=== PATIENT | female | born 1980 | race Two or more races ===

== ENCOUNTER 2024-04-10 14:40 | Outpatient (REF) | payer MEDICAID, SELFPAY ==
--- OUTSIDE RECORDS SUMMARY | 2024-04-10 18:31 | XMS_ITS | Encounter Summary ---
Author Organization [employer] [facility] Address [address] [facility] [address] [place] [address] Care Team Providers Care Regrader Name Role Phone Unavailable Primary Care Provider Unavailabl e Reason for Visit * Reason Onset Date Comments Chart Prep 04/04/2024 Encounter Details Date Type Department Care Team (Late st Contact Info) Description 04/04/2024 Telephone [facility] [address] [place] [phone] Florecita Pal MA Chart Prep Social History [...] Description 06/12/2024 3:15 PM EDT Office Visit [facility] [address] [place] [address] Ирина Saenz NP [address] [place] [address] documented as of this encounter Visit Diagnoses Not on filedocumented in this encounter
--- OUTSIDE RECORDS SUMMARY | 2024-04-10 18:31 | XMS_ITS | Clinical Summary ---
Author Organization [employer] Address [address] [facility] 7[address] [place] [address] Care Team Providers Care Team Leader/Research Psychologist Name Role Phone Ирина Saenz NP Primary Care Provider [phone] Allergies No known active allergies Medications desogestrel-ethi [...] Description 04/10/2024 2:00 PM EST Office Visit [facility] [address] [place] [address] Ирина Saenz NP Anemia, unspecified type (Primary Dx); Menorrhagia with regular cycle; Exposure to sexually transmitted infection; Obesity (BMI 30.0-34.9) 04/10/2024 Travel 04/04/[address] [facility] [address] [place] [address] Florecita Pal MA Chart Prep 03/30/[address] [facility] [address] [place], [place] [phone] Ирина Saenz NP Pre-visit Planning (SDOH unable to reach, number disconnected) 01/31/[address] [facility] [address] [place], [place] [phone] Abhijeet Plasencia 01/28/2024 Patient Outreach [address] [phone] Abhijeet Plasencia RC Recovery Supports from Last [...] Description 06/12/2024 3:15 PM EDT Office Visit [facility] [address] [place] [address] Ирина Saenz NP [address] [place] [address] Health Maintenance Due Date Last Done Comments [...] type from Last 3 Months Results * TSH W/Reflex to FT4 (04/10/2024 3:11 PM EST) TSH reflex Free T4 2.45 0.32 - 4.0 uIU/mL [facility] Blood Venous blood specimen / Unknown 04/10/2024 3:11 PM EST 04/10/2024 4:01 PM EST us Ирина Saenz [employer] MAKER LAB BLOOD ORDERABLES Final Resul t [facility] [address] [place] [phone] [phone] * (ABNORMAL) CBC auto differential (04/10/2024 3:11 PM EST) White Blood Count 7.9 4.8 - 10.8 X10*3/uL [facility] Red Blood Count 3.86(L) 4.20 - 5.50 X10*6/uL [facility] Hemoglobin 7.3(L) 12.0 - 16.0 g/dl [facility] Hematocrit 25.2(L) 37.0 - 47.0 % [facility] Mean Corpuscular Volume 65.3(L) 80.0 - 98.0 fL [facility] Mean Corpuscular Hemoglobin 18.9(L) 27.0 - 33.0 pg [facility] Mean Corpuscular HGB Conc 29.0(L) 31.0 - 35.0 g/dl [facility] Red Cell Distribution Width 20.4(H) 11.0 - 16.0 % [facility] Platelet Count 369 160 - 400 X10*3/uL [facility] Mean Platelet Volume 10.3 9.4 - 12.3 fL [facility] Neutrophils Percent Auto 72.5 45 - 73 % [facility] Imm Gran Pct Auto 0.3 0.0 - 0.4 % [facility] Lymphocytes Percent Auto 19.3(L) 20 - 40 % [facility] Monocytes Percent Auto 7.7 2 - 11 % [facility] Eosinophils Percent Auto 0.1 0 - 4 % [facility] Basophils Percent Auto 0.1 0 - 2 % [facility] NRBC Pct Auto 0.0 0.0 - 0.2 /100WBC [facility] Neutrophils Absolute Auto 5.7 2.0 - 8.3 x10*3/uL [facility] Imm Gran Abs Auto 0.02 0.00 - 0.03 X10*3/uL [facility] Lymphocytes Absolute Auto 1.5 1.2 - 4.9 X10*3/uL [facility] Monocytes Absolute Auto 0.6 0.1 - 1.2 X10*3/uL [facility] Eosinophils Absolute Auto 0.0 0.0 - 0.4 X10*3/uL [facility] Basophils Absolute Auto 0.0 0.0 - 0.2 X10*3/uL [facility] NRBC Abs Auto 0.000 0.0 - 0.012 X10*3/uL [facility] Blood Venous blood specimen / Unknown 04/10/2024 3:11 PM EST 04/10/2024 4:01 PM EST us Ирина Saenz NP LAB BLOOD ORDERABLES Final Resul t [facility] [address] [place] [phone] * (ABNORMAL) Iron And Total Iron Binding Capacity (04/10/2024 3:11 PM EST) Iron 14(L) 30 - 160 mcg/dL [facility] Total Iron Binding Capacity 342 228 - 428 mcg/dL [facility] Percent Iron Saturation 4(L) 15 - 50 % [facility] Unsaturated Iron Binding 328 ug/dL [facility] Blood Venous blood specimen / Unknown 04/10/2024 3:11 PM EST 04/10/2024 4:01 PM EST Ирина Saenz NP LAB BLOOD ORDERABLES Final Resul t Performing Organization Address [facility] Co de Phone Number [facility] [address] [place] [phone] * Hemoglobin A1c (04/10/2024 3:11 PM EST) Hemoglobin A1c 5.2 <6.0 % [facility] Comment:Hemoglobin A1C Refer ence Range Adults: 4.8 - 6.0 % Non diabetic: < 6.0 % Goal: < 7.0 %Additional Action Suggested: > 8.0 %Note: Hemoglobin A1c results are invalid for patients with abnormal amounts of HbF. Blood transfusions may impact the HbA1c concentration in the patient sample. Estimated Average Glucose 103 mg/dL [facility] Comment:eAG = Estimated ave rage glucose which is %A1C expressed asaverage glucose, using the formula of the M2T-LjbntfgYpaoikm Glucose study (ADAG), Diabetes Care, Vol.31,#8,Sep. 2007 Blood Venous blood specimen / Unknown 04/10/2024 3:11 PM EST 04/10/2024 4:01 PM EST us Ирина Saenz NP LAB BLOOD ORDERABLES Final Resul t Performing Organization Address [facility] de Phone Number [facility] [address] [place] [phone] * (ABNORMAL) Comprehensive Metabolic Panel (04/10/2024 3:11 PM EST) Sodium 140 135 - 145 mmol/L [facility] Potassium 4.3 3.3 - 5.1 mmol/L [facility] Chloride 109(H) 96 - 108 mmol/L [facility] Carbon Dioxide 25 22 - 29 mmol/L [facility] Anion Gap 10(L) 12 - 20 [facility] Urea Nitrogen (BUN) 18(H) 9 - 16 mg/dL [facility] Creatinine, Serum 0.79 0.5 - 1.4 mg/dL [facility] Estimated Glomerular Filt Rate >60 [facility] Comment:Chronic Kidney Disea se: Estimated GFR < 60 mL/min/1.43b6Igywdx Kidney Disease: Estimated GFR < 15 mL/min/1.73m2 Glucose 85 60 - 115 mg/dL [facility] Calcium 8.7 8.4 - 10.2 mg/dL [facility] Bilirubin, Total 0.2 0.0 - 1.0 mg/dL [facility] Aspartate Amino Transferase 25 5 - 31 U/L [facility] Alanine Aminotransferase 20 0 - 31 U/L [facility] Total Protein 7.6 6.5 - 8.0 g/dL [facility] Albumin Level 3.6 3.5 - 5.0 g/dL [facility] Alkaline Phosphatase 51 39 - 117 U/L [facility] Blood Venous blood specimen / Unknown 04/10/2024 3:11 PM EST 04/10/2024 4:01 PM EST us Ирина Saenz NP LAB BLOOD ORDERABLES Final Resul t [facility] [address] [place] [address] [phone] from Last 3 Months Insurance [facility] STANDARD [facility] C3 Care Teams Team Leader/Research Psychologist Relationship Specialty Start Date End Date Ирина Saenz NP [address] [place] [address] PCP - General Family Medicine 04/10/24
--- OUTSIDE RECORDS SUMMARY | 2024-04-10 18:31 | XMS_ITS | Encounter Summary ---
Author Organization [employer] Address [address] [facility] [address] [place] [address] Care Team Providers Care Fiberglass Insulation Installer Name Role Phone Unavailable Primary Care Provider Unavailabl e Reason for Visit * Reason Comments Pre-visit Planning SDOH unable to reach , number disconnected Encounter Details Date Type Department Care Team (Late st Contact Info) Description 03/30/2024 Patient Outreach [facility] [address] [place], [place] [phone] Ирина Saenz NP [address] [place], [place] [phone] Pre-visit Planning (SDOH unable to reach, number [...] Description 06/12/2024 3:15 PM EDT Office Visit [facility] [address] [place] [address] Ирина Saenz NP [address] [place] [address] documented as of this encounter Visit Diagnoses Not on filedocumented in this encounter
--- OUTSIDE RECORDS SUMMARY | 2024-04-10 18:31 | XMS_ITS | Encounter Summary ---
Author Organization [employer] Address [address] [facility] [address] [place] [address] Care Team Providers Care Associate Product Integrity Engineer Name Role Phone MarycarmenИрина zarco MAL Primary Care Provider [phone] Encounter Details Date Type Department Care Team [...] Description 06/12/2024 3:15 PM EDT Office Visit [facility] [address] [place] [address] Ирина Saenz NP [address] [place] [address] documented as of this encounter Visit Diagnoses Not on filedocumented in this encounter Additional Health Concerns Assessment Noted Time PHQ-9 Depression Total Score: 9 04/10/19 3:13 PM EST documented as of this encounter Care Teams Associate Product Integrity Engineer Relationship Specialty Start Date End Date Ирина Saenz NP [address] [place] [address] PCP - General Family Medicine 04/10/24 documented as of this encounter
--- OUTSIDE RECORDS SUMMARY | 2024-04-10 18:31 | XMS_ITS | Encounter Summary ---
Author Organization [facility] Address [address] [place] [address] [address] [place] [address] Care Team Providers Care Metallography Teacher Name Role Phone Ирина Saenz ENGRAVER LETTERING Primary Care Provider [phone] Reason for Referral * Imaging (Routine) - Authorized Specialty Diagnoses / Procedures Referred By Contac t Referred To Contact Radiology Diagnoses Anemia, unspecified type Procedures Us Pelvis complete Ирина Saenz NP [address] [place] [address] Phone: tel: fax: [facility] [address] [place] [address], [address] [address] Phone: tel: fax: Referral ID Status Reason Start Date Expiration Date V isits Requested Visits Authorized [id number] Authorized 04/10/2024 04/10/2025 1 1 * Imaging (Routine) - Authorized Specialty Diagnoses / Procedures Referred By Contac t Referred To Contact Radiology Diagnoses Anemia, unspecified type Procedures US Pelvis Transvaginal Ирина Saenz NP [address] [place] [address] Phone: tel: fax: [facility] [address] [place] [address], [address] [address] Phone: tel: fax: Referral ID Status Reason Start Date Expiration Date V isits Requested Visits Authorized [id number] Authorized 04/10/2024 04/10/2025 1 1 Encounter Details Date Type Department Care Team (Late st Contact Info) Description 04/10/2024 2:00 PM EST Office Visit [facility] [address] [place] [address] Ирина Saenz NP [address] [place] [address] Anemia, unspecified type (Primary Dx); Menorrhagia with [...] this encounter Progress Notes * Ирина Saenz, ENGRAVER LETTERING - 04/10/2024 2:00 PM EST Subjective: Desiree Little is a 43 y.o. female who presents to the office for a new patient visit. Pt was cared for by rn spine into adult [facility] Current concerns: Fatigue, numbness tinling,started 7-8 months ago , blood work revealed severe anemia, was prescribed iron at that time, pt has not taken iron pills. Hx iron has caused constipation was referred to train operator, cannot recall imaging completed Heavy periods , [...] file. 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 Blood transfusions may impact the HbA1c concentration in the patient sample. Estimated Average Glucose 103 mg/dL [facility] Comment:eAG = Estimated ave rage glucose which is %A1C expressed asaverage glucose, using the formula of the T2P-AkohbfmColcecg Glucose study (ADAG), Diabetes Care, Vol.31,#8,2007 Blood Venous blood specimen / Unknown 04/10/2024 3:11 PM EST 04/10/2024 4:01 PM EST us Ирина Saenz NP LAB BLOOD ORDERABLES Final Resul t [facility] [address] [place] [phone] * (ABNORMAL) Comprehensive Metabolic Panel (04/10/2024 3:11 PM EST) Pathologist [facility] Sodium 140 135 - 145 mmol/L [facility] Potassium 4.3 3.3 - 5.1 mmol/L [facility] Chloride 109(H) 96 - 108 mmol/L [facility] Carbon Dioxide 25 22 - 29 mmol/L [facility] Anion Gap 10(L) 12 - 20 [facility] Urea Nitrogen (BUN) 18(H) 9 - 16 mg/dL [facility] Creatinine, Serum 0.79 0.5 - 1.4 mg/dL [facility] Estimated Glomerular Filt Rate >60 [facility] Comment:Chronic Kidney Disea se: Estimated GFR < 60 mL/min/1.16s9Hysmqu Kidney Disease: Estimated GFR < 15 mL/min/1.73m2 Glucose 85 60 - 115 mg/dL [facility] Calcium 8.7 8.4 - 10.2 mg/dL [facility] Bilirubin, Total 0.2 0.0 - 1.0 mg/dL [facility] Aspartate Amino Transferase 25 5 - 31 U/L [facility] Alanine Aminotransferase 20 0 - 31 U/L [facility] Total Protein 7.6 6.5 - 8.0 g/dL [facility] Albumin Level 3.6 3.5 - 5.0 g/dL [facility] Alkaline Phosphatase 51 39 - 117 U/L [facility] Blood Venous blood specimen / Unknown 04/10/2024 3:11 PM EST 04/10/2024 4:01 PM EST us Ирина Saenz ENGRAVER LETTERING LAB BLOOD ORDERABLES Final Resul t Performing Organization Address [facility] Co de Phone Number [facility] [address] [place] [phone] * TSH W/Reflex to FT4 (04/10/2024 3:11 PM EST) TSH reflex Free T4 2.45 0.32 - 4.0 uIU/mL [facility] Blood Venous blood specimen / Unknown 04/10/2024 3:11 PM EST 04/10/2024 4:01 PM EST us Ирина Saenz ENGRAVER LETTERING LAB BLOOD ORDERABLES Final Resul t Performing Organization Address [facility] Co de Phone Number [facility] [address] [place] [phone] * (ABNORMAL) Iron And Total Iron Binding Capacity (04/10/2024 3:11 PM EST) Iron 14(L) 30 - 160 mcg/dL [facility] Total Iron Binding Capacity 342 228 - 428 mcg/dL [facility] Percent Iron Saturation 4(L) 15 - 50 % [facility] Unsaturated Iron Binding 328 ug/dL [facility] Blood Venous blood specimen / Unknown 04/10/2024 3:11 PM EST 04/10/2024 4:01 PM EST us Ирина Saenz ENGRAVER LETTERING LAB BLOOD ORDERABLES Final Resul t [facility] [address] [place] [phone] [phone] * (ABNORMAL) CBC auto differential (04/10/2024 3:11 PM EST) White Blood Count 7.9 4.8 - 10.8 X10*3/uL [facility] Red Blood Count 3.86(L) 4.20 - 5.50 X10*6/uL [facility] Hemoglobin 7.3(L) 12.0 - 16.0 g/dl [facility] Hematocrit 25.2(L) 37.0 - 47.0 % [facility] Mean Corpuscular Volume 65.3(L) 80.0 - 98.0 fL [facility] Mean Corpuscular Hemoglobin 18.9(L) 27.0 - 33.0 pg [facility] Mean Corpuscular HGB Conc 29.0(L) 31.0 - 35.0 g/dl [facility] Red Cell Distribution Width 20.4(H) 11.0 - 16.0 % [facility] Platelet Count 369 160 - 400 X10*3/uL [facility] Mean Platelet Volume 10.3 9.4 - 12.3 fL [facility] Neutrophils Percent Auto 72.5 45 - 73 % [facility] Imm Gran Pct Auto 0.3 0.0 - 0.4 % [facility] Lymphocytes Percent Auto 19.3(L) 20 - 40 % [facility] Monocytes Percent Auto 7.7 2 - 11 % [facility] Eosinophils Percent Auto 0.1 0 - 4 % [facility] Basophils Percent Auto 0.1 0 - 2 % [facility] NRBC Pct Auto 0.0 0.0 - 0.2 /100WBC [facility] Neutrophils Absolute Auto 5.7 2.0 - 8.3 x10*3/uL [facility] Imm Gran Abs Auto 0.02 0.00 - 0.03 X10*3/uL [facility] Lymphocytes Absolute Auto 1.5 1.2 - 4.9 X10*3/uL [facility] Monocytes Absolute Auto 0.6 0.1 - 1.2 X10*3/uL [facility] Eosinophils Absolute Auto 0.0 0.0 - 0.4 X10*3/uL [facility] Basophils Absolute Auto 0.0 0.0 - 0.2 X10*3/uL [facility] NRBC Abs Auto 0.000 0.0 - 0.012 X10*3/uL [facility] Blood Venous blood specimen / Unknown 04/10/2024 3:11 PM EST 04/10/2024 4:01 PM EST us Ирина Saenz NP LAB BLOOD ORDERABLES Final Resul t [facility] [address] [place] [phone] [phone] documented in this encounter Visit Diagnoses Diagnosis Anemia, unspecified type- Primary Menorrhagia with regular cycle Exposure to sexually transmitted infection Obesity (BMI 30.0-34.9) documented in this encounter Additional Health Concerns Assessment Noted Time PHQ-9 Depression Total Score: 9 04/10/19 25 3:13 PM EST documented as of this encounter Care Teams Metallography Teacher Relationship Specialty Start Date End Date Ирина Saenz NP [address] [place] [phone] PCP - General Family Medicine 04/10/24 documented as of this encounter
[2024-04-11 14:28] LABS: CT PCR NOT DETECTED (Not Detect.); NG PCR NOT DETECTED (Not Detect.)
== END 2024-04-10 14:41 | disposition home or self-care (01) ==
LOC: HO.LNP 14:40
PROVIDERS: Visit Provider Nurse Practitioner Family
DX: Z20.2 Contact with and (suspected) exposure to infections with a predominantly sexual mode of transmission (principal)
CPT/HCPCS: 87491; 87591

== ENCOUNTER 2024-04-10 15:08 | Outpatient (REF) | payer MEDICAID, SELFPAY ==
[2024-04-10 16:06] LABS: MANUAL DIFF FLAG NO
[2024-04-10 16:20] LABS: Basophils Percent Auto 0.1 % (0-2); Eosinophils Percent Auto 0.1 % (0-4); Hematocrit 25.2 % (37.0-47.0); Hemoglobin 7.3 g/dl (12.0-16.0); Imm Gran Abs Auto 0.02 X10*3/uL (0.00-0.03); Imm Gran Pct Auto 0.3 % (0.0-0.4); Lymphocytes Absolute Auto 1.5 X10*3/uL (1.2-4.9); Lymphocytes Percent Auto 19.3 % (20-40); Mean Corpuscular Hemoglobin 18.9 pg (27.0-33.0); Mean Corpuscular Volume 65.3 fL (80.0-98.0); Mean Platelet Volume 10.3 fL (9.4-12.3); Monocytes Absolute Auto 0.6 X10*3/uL (0.1-1.2); Monocytes Percent Auto 7.7 % (2-11); Neutrophils Absolute Auto 5.7 x10*3/uL (2.0-8.3); Neutrophils Percent Auto 72.5 % (45-73); Platelet Count 369 X10*3/uL (160-400); Red Blood Count 3.86 X10*6/uL (4.20-5.50); Red Cell Distribution Width 20.4 % (11.0-16.0); White Blood Count 7.9 X10*3/uL (4.8-10.8)
[2024-04-10 16:25] LABS: Estimated Average Glucose 103 mg/dL; Hemoglobin A1c % 5.2 % (<6.0)
[2024-04-10 17:23] LABS: Alanine Aminotransferase 20 U/L (0-31); Albumin Level 3.6 g/dL (3.5-5.0); Anion Gap 10 (12-20); Aspartate Amino Transferase 25 U/L (5-31); Bilirubin Total 0.2 mg/dL (0.0-1.0); Blood Urea Nitrogen 18 mg/dL (9-16); Calcium 8.7 mg/dL (8.4-10.2); Carbon Dioxide 25 mmol/L (22-29); Chloride 109 mmol/L (96-108); Estimated Glomerular Filt Rate > 60; Glucose Random 85 mg/dL (60-115); Iron 14 mcg/dL (30-160); Percent Iron Saturation 4 % (15-50); Potassium 4.3 mmol/L (3.3-5.1); Sodium 140 mmol/L (135-145); Total Iron Binding Capacity 342 mcg/dL (228-428); Total Protein 7.6 g/dL (6.5-8.0); Unsaturated Iron Binding 328 ug/dL
[2024-04-10 17:27] LABS: TSH reflex Free T4 2.45 uIU/mL (0.32-4.0)
--- OUTSIDE RECORDS SUMMARY | 2024-04-10 17:28 | XMS_ITS | Encounter Summary ---
Author Organization [employer] [facility] Address [address] [facility] [address] [place] [address] Care Team Providers Care Software Test Automation Engineer Name Role Phone Unavailable Primary Care Provider Unavailabl e Reason for Visit * Reason Onset Date Comments Chart Prep 04/04/2024 Encounter Details Date Type Department Care Team (Late st Contact Info) Description 04/04/2024 Telephone [facility] [address] [place] [phone] Florecita Pal MA Chart Prep Social History Tobacco Use Types Packs/Day Years Used Date Smoking Tobacco: Never Assessed Comments Unknown Sex and Gender Information Value Date Recorded Sex Assigned at Female 04/07/2024 9:52 AM EST Legal Sex Female 8:30 AM EST Gender Identity Female 04/07/2024 9:52 AM EST Sexual Orientation Straight 04/07/2024 9: 52 AM EST documented as of this encounter Miscellaneous Notes * Telephone Encounter - Florecita Pal MA - 04/04/2024 10:22 AM EST Chart Prep Labs: not applicable Images: not applicable Vaccines due: Covid, Tdap, Hep B, Flu Referrals: none Screenings: mammogram , HIV, Hep C, Cervical cancer Overdue care gaps: Sbirt, SDOH, PHQ-9, Oral Health documented in this encounter Plan of Treatment Upcoming Encounters Date Type Department Care Team (Late st Contact Info) Description 06/12/2024 3:15 PM EDT Office Visit [facility] MED[facility]INE [address] [place] [phone] Ирина Saenz NP [address] [place] [address] documented as of this encounter Visit Diagnoses Not on filedocumented in this encounter
--- OUTSIDE RECORDS SUMMARY | 2024-04-10 17:28 | XMS_ITS | Encounter Summary ---
Author Organization [employer] Address [address] [facility] [address] [place] [address] Care Team Providers Care Talent Development Director Name Role Phone MarycarmenИрина zarco MAL Primary Care Provider [phone] Encounter Details Date Type Department Care Team (Latest Contact Info) Description 04/10/2024 Travel Social History Tobacco Use Types Packs/Day Years Used Date Smoking Tobacco: Never Smokeless Tobacco: Never Depression Answer Date Recorded Patient Health Questionnaire-9 Score 9 04/10/2024 Patient Health Questionnaire-9 Score 9 04/10/2024 Last PHQ-9: Questionnaire Data Not on file 0 04/10/2024 Housing Stability Answer Date Recorded What is your housing situation today? I have alix padgett 04/10/[address] you li ve. Do you have problems with any of the following? None of the above 04/10/2024 Food Insecurity Answer Date Recorded Within the past 12 months, y ou worried that your food would run out before you got money to buy more: Never True 04/10/2024 Within the past 12 months,th e food you bought just didn't last and you didn't have enough money to get more: Never True Transportation Answer Date Recorded In the past 12 months, has l ack of transportation kept you from medical appts, meetings, work or from getting things needed for daily living? No 04/10/2024 Utilities Answer Date Recorded In the past 12 months, has t he electric, gas, oil or water company threatened to shut off services in your home? No 04/10/2024 Depression Answer Date Recorded Patient Health Questionnaire-2 Score 2 04/10/2024 Internet Access Answer Date Recorded Internet Access Q1 Yes 04/10/2024 Internet Access Q2 Not on file 04/10/2024 Comments Unknown Sex and Gender Information Value Date Recorded Sex Assigned at Female 04/07/2024 9:52 AM EST Legal Sex Female 8:30 AM EST Gender Identity Female 04/07/2024 9:52 AM EST Sexual Orientation Straight 04/07/2024 9: 52 AM EST documented as of this encounter Plan of Treatment Upcoming Encounters Date Type Department Care Team (Late st Contact Info) Description 06/12/2024 3:15 PM EDT Office Visit [facility] [address] [place] [address] Ирина Saenz NP [address] [place] [address] documented as of this encounter Visit Diagnoses Not on filedocumented in this encounter Additional Health Concerns Assessment Noted Time PHQ-9 Depression Total Score: 9 04/10/19 3:13 PM EST documented as of this encounter Care Teams Talent Development Director Relationship Specialty Start Date End Date Ирина Saenz NP [address] [place] [address] PCP - General Family Medicine 04/10/24 documented as of this encounter
--- OUTSIDE RECORDS SUMMARY | 2024-04-10 17:28 | XMS_ITS | Clinical Summary ---
Author Organization [employer] Address [address] [facility] [address] [place] [address] Care Team Providers Care Director Stage Name Role Phone Ирина Saenz NP Primary Care Provider Allergies No known active allergies Medications desogestrel-ethi nyl estradiol (Apri) 0.15-30 MG-MCG tabletIndication s:Menorrhagia with regular cycle Take 1 tablet by mouth Once per day. 28 tablet 2 04/10/2024 Active Active Problems Problem Noted Date Diagnosed Date Anemia 04/10/2024 Assessment & Plan (04/10/2024 3:13 PM EST): Hx of significant anemia, pt denies gi symptoms, or hereditary anemia Does endorse menorraghia and hx of being prescribed iron Cbc iron panel ordered See menorraghia for further work up Menorrhagia with regular cycle 04/10/2024 Assessment & Plan (04/10/2024 3:14 PM EST): Concerning for fibroid uterus, Ultrasound ordered STI panel ordered Pt opts for ocps today as both contraception and potential for reducing symptoms Folllow up in 6-8 weeks Sooner prn Exposure to sexually transmitted infection 04/10 Obesity (BMI 30.0-34.9) 04/10/2024 Assessment & Plan (04/10/2024 3:13 PM EST): Metabolic labs as ordered below Class 1 obesity 04/04/2024 Resolved Problems Problem Noted Date Diagnosed Date Resolved Date Other specified anemias 04/10/20242 05/2024 Encounters Date Type Department Care Team Description 04/10/2024 2:00 PM EST Office Visit [facility] [address] [place] [address] Ирина Saenz NP Anemia, unspecified type (Primary Dx); Menorrhagia with regular cycle; Exposure to sexually transmitted infection; Obesity (BMI 30.0-34.9) 04/10/2024 Travel 04/04/2024 Telephone [facility] [address] [place] [address] Florecita Pal MA Chart Prep 03/30/2024 Patient Outreach [facility] [address] [place], [place] [phone] Ирина Saenz NP Pre-visit Planning (SDOH unable to reach, number disconnected) 01/31/2024 Patient Outreach [facility] [address] [place], [place] [phone] Abhijeet Plasencia 01/28/2024 Patient Outreach [address] [phone] Abhijeet Plasencia [facility] Recovery Supports from Last 3 Months Social History Tobacco Use Types Packs/Day Years Used Date Smoking Tobacco: Never Smokeless Tobacco: Never Tobacco Cessation:Counseling Given: Not Answered Depression Answer Date Recorded Patient Health Questionnaire-9 Score 9 04/10/2024 Patient Health Questionnaire-9 Score 9 04/10/2024 Last PHQ-9: Questionnaire Data Not on file 0 04/10/2024 Housing Stability Answer Date Recorded What is your housing situation today? I have alixkyree padgett 04/10/[address] you [...] Orientation Straight 04/07/2024 9: 52 AM EST Last Filed Vital Signs Vital Sign Reading Time Taken Comments Blood Pressure 112/64 04/10/2024 2:05 PM EST Pulse 99 04/10/2024 2:05 PM EST Temperature - - Respiratory Rate 18 04/10/2024 2:05 PM EST Oxygen Saturation 99% 04/10/2024 2:05 PM EST Inhaled Oxygen Concentration - - Weight 86.2 kg (190 lb) 04/10/2024 2:05 PM EST Height 157.5 cm (5' 2 ) 04/10/2024 2:05 PM EST Body Mass Index 34.75 04/10/2024 2:05 PM EST Plan of Treatment Upcoming Encounters Date Type Department Care Team (Late st Contact Info) Description 06/12/2024 3:15 PM EDT Office Visit [facility] [address] [place] [address] Ирина Saenz NP [address] [place] [address] Health Maintenance Due Date Last Done Comments HIV Screening 1981 Family Planning (PISQ) 1996 Hepatitis C Screening 09/24/1999 Hepatitis B Vaccines (1 of 3 - 19+ 3-dose series) 2000 Pap Smear 2002 Cervical Cancer Screening 09/24/2011 HPV/Cotest 09/24/2011 Mammogram 2021 DTaP/Tdap/Td Vaccines (2 - T d or Tdap) 11/03/2021 11/04/2011 COVID-19 Vaccine (3 - 2023-2 5 season) 2023 12/11/2020, 11/20/2020 Influenza Vaccine (#1) 2023 03/25/2011 Depression Monitoring (PHQ-9) 10/08/2024, 04/10/2024 Alcohol/Substance Use Screening 04/10/2025 04/10/2024 Depression Screening 04/10/2025 04/10/2024, 04/10/2024 SDOH Screening 04/10/2025 04/10/2024 Tobacco Screening 04/10/2025 04/10/2024 Zoster Vaccines (1 of 2) 09/24/2031 RSV Patients and Patients Aged 60 years or older (1 - 1-dose 75+ series) 2056 HIB Vaccines Aged Out No longer eligi ble based on patient's age to complete this topic HPV Vaccines Aged Out No longer eligi ble based on patient's age to complete this topic Hepatitis A Vaccines Aged Out No long er eligible based on patient's age to complete this topic IPV Vaccines Aged Out No longer eligi ble based on patient's age to complete this topic Meningococcal Vaccine Aged Out No jillian lior eligible based on patient's age to complete this topic Pneumococcal Vaccine: Pediatrics (0 to 5 Years) and At-Risk Patients (6 to 49) Years) Aged Out No longer eligible b ased on patient's age to complete this topic RSV under 20 months Aged Out No longe r eligible based on patient's age to complete this topic Rotavirus Vaccines Aged Out No longer eligible based on patient's age to complete this topic Procedures Procedure Name Priority Date/Time Associated Diagnosis Comments HEMOGLOBIN A1C Routine 04/10/2024 3:11 PM EST Obesity (BMI 30.0-34.9) COMPREHENSIVE METABOLIC PANEL Routine 04/10/2024 3:11 PM EST Obesity (BMI 30.0-34.9) TSH W/REFLEX TO FT4 Routine 04/10/2024 3 :11 PM EST Menorrhagia with regular cycle IRON AND TOTAL IRON BINDING CAPACITY Routine 04/10/2024 3:11 PM EST Anemia, unspecified type CBC WITH AUTO DIFFERENTIAL Routine 04/10/2024 3:11 PM EST Anemia, unspecified type from Last 3 Months Results * (ABNORMAL) CBC auto differential (04/10/2024 3:11 PM EST) White Blood Count 7.9 4.8 - 10.8 X10*3/uL [facility] Red Blood Count 3.86(L) 4.20 - 5.50 X10*6/uL [facility] Hemoglobin 7.3(L) 12.0 - 16.0 g/dl [facility] Hematocrit 25.2(L) 37.0 - 47.0 % [facility] Mean Corpuscular Volume 65.3(L) 80.0 - 98.0 fL [facility] Mean Corpuscular Hemoglobin 18.9(L) 27.0 - 33.0 pg [facility] Mean Corpuscular HGB Conc 29.0(L) 31.0 - 35.0 g/dl [facility] Red Cell Distribution Width 20.4(H) 11.0 - 16.0 % [facility] Platelet Count 369 160 - 400 X10*3/uL [facility] Mean Platelet Volume 10.3 9.4 - 12.3 fL [facility] Neutrophils Percent Auto 72.5 45 - 73 % [facility] Imm Gran Pct Auto 0.3 0.0 - 0.4 % [facility] Lymphocytes Percent Auto 19.3(L) 20 - 40 % [facility] Monocytes Percent Auto 7.7 2 - 11 % [facility] Eosinophils Percent Auto 0.1 0 - 4 % [facility] Basophils Percent Auto 0.1 0 - 2 % [facility] NRBC Pct Auto 0.0 0.0 - 0.2 /100WBC [facility] Neutrophils Absolute Auto 5.7 2.0 - 8.3 x10*3/uL [facility] Imm Gran Abs Auto 0.02 0.00 - 0.03 X10*3/uL [facility] Lymphocytes Absolute Auto 1.5 1.2 - 4.9 X10*3/uL [facility] Monocytes Absolute Auto 0.6 0.1 - 1.2 X10*3/uL [facility] Eosinophils Absolute Auto 0.0 0.0 - 0.4 X10*3/uL [facility] Basophils Absolute Auto 0.0 0.0 - 0.2 X10*3/uL [facility] NRBC Abs Auto 0.000 0.0 - 0.012 X10*3/uL [facility] Blood Venous blood specimen / Unknown 04/10/2024 3:11 PM EST 04/10/2024 4:01 PM EST us Ирина Saenz DELIVERY LEAD LAB BLOOD ORDERABLES Final Resul t Performing Organization Address [facility]/ZIP Co de Phone Number [facility] [address] [place] [address] [phone] * Hemoglobin A1c (04/10/2024 3:11 PM EST) Hemoglobin A1c 5.2 <6.0 % [facility] Comment:Hemoglobin A1C Refer ence Range Adults: 4.8 - 6.0 % Non diabetic: < 6.0 % Goal: < 7.0 %Additional Action Suggested: > 8.0 %Note: Hemoglobin A1c results are invalid for patients with abnormal amounts of HbF. Blood transfusions may impact the HbA1c concentration in the patient sample. Estimated Average Glucose 103 mg/dL [facility] Comment:eAG = Estimated ave rage glucose which is %A1C expressed asaverage glucose, using the formula of the [id number] Glucose study (ADAG), Diabetes Care, Vol.31,#8,Sep. 2007 Blood Venous blood specimen / Unknown 04/10/2024 3:11 PM EST 04/10/2024 4:01 PM EST us Ирина Saenz DELIVERY LEAD LAB BLOOD ORDERABLES Final Resul t Performing Organization Address City/[facility]/ZIP Co de Phone Number [facility] [address] [place] [address] [phone] from Last 3 Months Insurance [facility] STANDARD [facility] C3 Care Teams Director Stage Relationship Specialty Start Date End Date Ирина Saenz NP [address] [place] [address] PCP - General Family Medicine 04/10/24
--- OUTSIDE RECORDS SUMMARY | 2024-04-10 17:28 | XMS_ITS | Encounter Summary ---
Author Organization [employer] Address [address] [facility] [address] [place] [address] Care Team Providers Care Glazing Machine Operator Name Role Phone Unavailable Primary Care Provider Unavailabl e Reason for Visit * Reason Comments Pre-visit Planning SDOH unable to reach , number disconnected Encounter Details Date Type Department Care Team (Late st Contact Info) Description 03/30/2024 Patient Outreach [facility] [address] [place], [place] [phone] Ирина Saenz NP [address] [place], [place] [phone] Pre-visit Planning (SDOH unable to reach, number disconnected) Social History Tobacco Use Types Packs/Day Years Used Date Smoking Tobacco: Never Assessed Comments Unknown Sex and Gender Information Value Date Recorded Sex Assigned at Female 04/07/2024 9:52 AM EST Legal Sex Female 8:30 AM EST Gender Identity Female 04/07/2024 9:52 AM EST Sexual Orientation Straight 04/07/2024 9: 52 AM EST documented as of this encounter Progress Notes * Katalina Alvarez - 03/30/2024 12:52 PM EST CC Katalina Gorman placed outbound call to patient to complete pre-visit planning. No answer at this time. Patient name and were not confirmed. CC unable to leave a message due to number not in service documented in this encounter Plan of Treatment Upcoming Encounters Date Type Department Care Team (Late st Contact Info) Description 06/12/2024 3:15 PM EDT Office Visit [facility] MEDICINE [address] [place] [address] Ирина Saenz NP [address] [place] [address] documented as of this encounter Visit Diagnoses Not on filedocumented in this encounter
--- OUTSIDE RECORDS SUMMARY | 2024-04-10 17:28 | XMS_ITS | Encounter Summary ---
Author Organization [facility] Address [address] [place] [address] [address] [place] [address] Care Team Providers Care Vegetable Inspector Name Role Phone Ирина Saenz APPLIANCE INSTALLER Primary Care Provider [phone] Reason for Referral * Imaging (Routine) - Authorized Specialty Diagnoses / Procedures Referred By Contac t Referred To Contact Radiology Diagnoses Anemia, unspecified type Procedures Us Pelvis complete Ирина Saenz NP [address] [place] [address] Phone: tel: fax: [facility] [address] [place] [address], [address] [address] Phone: tel: fax: Referral ID Status Reason Start Date Expiration Date V isits Requested Visits Authorized [id number] Authorized 04/10/2024 04/10/2025 1 1 * Imaging (Routine) - Authorized Specialty Diagnoses / Procedures Referred By Contac t Referred To Contact Radiology Diagnoses Anemia, unspecified type Procedures US Pelvis Transvaginal Ирина Saenz NP [address] [place] [address] Phone: tel: fax: [facility] [address] [place] [address], [address] [address] Phone: tel: fax: Referral ID Status Reason Start Date Expiration Date V isits Requested Visits Authorized [id number] Authorized 04/10/2024 04/10/2025 1 1 Encounter Details Date Type Department Care Team (Late st Contact Info) Description 04/10/2024 2:00 PM EST Office Visit [facility] [address] [place] [address] Ирина Saenz NP [address] [place] [address] Anemia, unspecified type (Primary Dx); Menorrhagia with regular cycle; Exposure to sexually transmitted infection; Obesity (BMI 30.0-34.9) Social History Tobacco Use Types Packs/Day Years [...] AM EST documented as of this encounter Last Filed Vital Signs Vital Sign Reading [...] Mass Index 34.75 04/10/2024 2:05 PM EST documented in this encounter Progress Notes * Ирина Saenz, APPLIANCE INSTALLER - 04/10/2024 2:00 PM EST Subjective: Desiree Little is a 43 y.o. female who presents to the office for a new patient visit. Pt was cared for by town manager into adult garcia Current concerns: Fatigue, numbness tinling,started 7-8 months ago , blood work revealed severe anemia, was prescribed iron at that time, pt has not taken iron pills. Hx iron has caused constipation was referred to drawbench operator helper, cannot recall imaging completed Heavy periods , no gi symptoms, Pt does not want to be , would like to start contraceptives today, non smoker, no hx of estrogen mediated breast ca, no clotting disorder, no hx of migraine with aura, Patient Active Problem List Diagnosis Class 1 obesity Anemia Menorrhagia with regular cycle Exposure to sexually transmitted infection Obesity (BMI 30.0-34.9) No past surgical history on file. No family history on file. 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 No Known Allergies Review of Systems Constitutional: Positive for fatigue. Negative for activity change. Respiratory: Negative for apnea and chest tightness. Cardiovascular: Negative for chest pain. Gastrointestinal: Negative for abdominal distention. Endocrine: Negative for cold intolerance, heat intolerance, polydipsia, polyphagia and polyuria. Genitourinary: Positive for menstrual problem. Negative for difficulty urinating, dyspareunia, pelvic pain and vaginal discharge. Musculoskeletal: Negative for arthralgias. Psychiatric/Behavioral: Negative for agitation. Vitals: 04/10/24 1405 BP: 112/64 BP Location: Left arm Patient Position: Sitting BP Cuff Size: Large adult Pulse: 99 Resp: 18 SpO2: 99% Weight: 190 lb (86.2 kg) Height: 5' 2 (1.575 m) Physical Exam Vitals reviewed. Constitutional: Appearance: She is obese. HENT: Head: Normocephalic and atraumatic. Nose: Nose normal. Eyes: Conjunctiva/sclera: Conjunctivae normal. Cardiovascular: Rate and Rhythm: Normal rate and regular rhythm. Heart sounds: Normal heart sounds. Pulmonary: Effort: Pulmonary effort is normal. Breath sounds: Normal breath sounds. Abdominal: Palpations: Abdomen is soft. Tenderness: There is no abdominal tenderness. Musculoskeletal: Cervical back: Normal range of motion and neck supple. Neurological: General: No focal deficit present. Mental Status: She is alert. Problem List Items Addressed This Visit Anemia - Primary Current Assessment & Plan Hx of significant anemia, pt denies gi symptoms, or hereditary anemia Does endorse menorraghia and hx of being prescribed iron Cbc iron panel ordered See menorraghia for further work up Relevant Orders CBC auto differential Iron And Total Iron Binding Capacity US Pelvis Transvaginal Us Pelvis complete Menorrhagia with regular cycle Current Assessment & Plan Concerning for fibroid uterus, Ultrasound ordered STI panel ordered Pt opts for ocps today as both contraception and potential for reducing symptoms Folllow up in 6-8 weeks Sooner prn Relevant Medications desogestrel-ethinyl estradiol (Apri) 0.15-30 MG-MCG tablet Other Relevant Orders TSH W/Reflex to FT4 Exposure to sexually transmitted infection Relevant Orders HIV-1/2 Antigen and Antibodies, Fourth Generation, with Reflexes RPR (Monitor) with Reflex to Titer Hepatitis C Antibody with Reflex to HCV, RNA, Quantitative, Real-Time PCR Chlamydia/N. Gonorrhoeae RNA, TMA, Urogenitial Obesity (BMI 30.0-34.9) Current Assessment & Plan Metabolic labs as ordered below Relevant Orders Comprehensive Metabolic Panel Hemoglobin A1c Routine Screening and Health Maintenance Sti panel ordered Current Outpatient Medications Medication Sig Dispense Refill desogestrel-ethinyl estradiol (Apri) 0.15-30 MG-MCG tablet Take 1 tablet by mouth Once per day. 28 tablet 2 No current facility-administered medications for this visit. Immunization History Administered Date(s) Administered Pfizer Covid-19 Vaccine 12+ 11/20/2020, 12/11/2020 documented in this encounter Miscellaneous Notes * Assessment & Plan Note - Ирина Saenz NP - 04/10/2024 3:14 PM ESTAssociated Problem(s): Menorrhagia with regular cycle Concerning for fibroid uterus, Ultrasound ordered STI panel ordered Pt opts for ocps today as both contraception and potential for reducing symptoms Folllow up in 6-8 weeks Sooner prn * Assessment & Plan Note - Ирина Saenz NP - 04/10/2024 3:13 PM ESTAssociated Problem(s): Obesity (BMI 30.0-34.9) Metabolic labs as ordered below * Assessment & Plan Note - Ирина Saenz NP - 04/10/2024 3:12 PM ESTAssociated Problem(s): Anemia Hx of significant anemia, pt denies gi symptoms, or hereditary anemia Does endorse menorraghia and hx of being prescribed iron Cbc iron panel ordered See menorraghia for further work up documented in this encounter Plan of Treatment Upcoming Encounters Date Type Department Care Team (Late st Contact Info) Description 06/12/2024 3:15 PM EDT Office Visit [facility] [address] [place] [address] Ирина Saenz NP [address] [place] [address] Pending Results Name Type Priority Associated Diagnoses Date /Time Iron And Total Iron Binding Capacity Lab Routine Anemia, unspecified type 04/10/2024 3:11 PM EST TSH W/Reflex to FT4 Lab Routine Menorrhagia with regular cycle 04/10/2024 3:11 PM EST Comprehensive Metabolic Panel Lab Routine Obesity (BMI 30.0-34.9) 04/10/2024 3:11 PM EST Scheduled Orders Name Type Priority Associated Diagnoses Orde r Schedule US Pelvis Transvaginal Imaging Routine Anemia, unspecified type Expected: 04/10/2024, Expires: 04/10/2025 Us Pelvis complete Imaging Routine Anemia, unspecified type Expected: 04/10/2024, Expires: 04/10/2025 HIV-1/2 Antigen and Antibodies, Fourth Generation, with Reflexes Lab Routine Exposure to sexually transmitted infection Expected: 04/10/2024 (Approximate), Expires: 04/10/2025 RPR (Monitor) with Reflex to??Titer Lab Routine Exposure to sexually transmitted infection Expected: 04/10/2024, Expires: 04/10/2025 Hepatitis C Antibody with Reflex to HCV, RNA, Quantitative, Real-Time PCR Lab Routine Exposure to sexually transmitted infection Expected: 04/10/2024, Expires: 04/10/2025 Chlamydia/N. Gonorrhoeae RNA, TMA, Urogenitial Microbiology Routine Exposure to sexually transmitted infection Ordered: 04/10/2024 documented as of this encounter Procedures Procedure Name Priority Date/Time Associated Diagnosis Comments TSH W/REFLEX TO FT4 Routine 04/10/2024 3 :11 PM EST Menorrhagia with regular cycle CBC WITH AUTO DIFFERENTIAL Routine 04/10/2024 3:11 PM EST Anemia, unspecified type IRON AND TOTAL IRON BINDING CAPACITY Routine 04/10/2024 3:11 PM EST Anemia, unspecified type HEMOGLOBIN A1C Routine 04/10/2024 3:11 PM EST Obesity (BMI 30.0-34.9) COMPREHENSIVE METABOLIC PANEL Routine 04/10/2024 3:11 PM EST Obesity (BMI 30.0-34.9) documented in this encounter Results * Hemoglobin A1c (04/10/2024 3:11 PM EST) Hemoglobin A1c 5.2 <6.0 % [facility] Comment:Hemoglobin A1C Refer ence Range Adults: 4.8 - 6.0 % Non diabetic: < 6.0 % Goal: < 7.0 %Additional Action Suggested: > 8.0 %Note: Hemoglobin A1c results are invalid for patients with abnormal amounts of HbF. Blood transfusions may impact the HbA1c concentration in the patient sample. Estimated Average Glucose 103 mg/dL [facility] Comment:eAG = Estimated ave rage glucose which is %A1C expressed asaverage glucose, using the formula of the C8R-WpzzoqrQxxradz Glucose study (ADAG), Diabetes Care, Vol.31,#8,Sep. 2007 Blood Venous blood specimen / Unknown 04/10/2024 3:11 PM EST 04/10/2024 4:01 PM EST us Ирина Saenz NP LAB BLOOD ORDERABLES Final Resul t [facility] [address] [place] [address] [phone] * (ABNORMAL) CBC auto differential (04/10/2024 3:11 PM EST) White Blood Count 7.9 4.8 - 10.8 X10*3/uL [facility] Red Blood Count 3.86(L) 4.20 - 5.50 X10*6/uL [facility] Hemoglobin 7.3(L) 12.0 - 16.0 g/dl [facility] Hematocrit 25.2(L) 37.0 - 47.0 % [facility] Mean Corpuscular Volume 65.3(L) 80.0 - 98.0 fL [facility] Mean Corpuscular Hemoglobin 18.9(L) 27.0 - 33.0 pg [facility] Mean Corpuscular HGB Conc 29.0(L) 31.0 - 35.0 g/dl [facility] Red Cell Distribution Width 20.4(H) 11.0 - 16.0 % [facility] Platelet Count 369 160 - 400 X10*3/uL [facility] Mean Platelet Volume 10.3 9.4 - 12.3 fL [facility] Neutrophils Percent Auto 72.5 45 - 73 % [facility] Imm Gran Pct Auto 0.3 0.0 - 0.4 % [facility] Lymphocytes Percent Auto 19.3(L) 20 - 40 % [facility] Monocytes Percent Auto 7.7 2 - 11 % [facility] Eosinophils Percent Auto 0.1 0 - 4 % [facility] Basophils Percent Auto 0.1 0 - 2 % [facility] NRBC Pct Auto 0.0 0.0 - 0.2 /100WBC [facility] Neutrophils Absolute Auto 5.7 2.0 - 8.3 x10*3/uL [facility] Imm Gran Abs Auto 0.02 0.00 - 0.03 X10*3/uL [facility] Lymphocytes Absolute Auto 1.5 1.2 - 4.9 X10*3/uL [facility] Monocytes Absolute Auto 0.6 0.1 - 1.2 X10*3/uL [facility] Eosinophils Absolute Auto 0.0 0.0 - 0.4 X10*3/uL [facility] Basophils Absolute Auto 0.0 0.0 - 0.2 X10*3/uL [facility] NRBC Abs Auto 0.000 0.0 - 0.012 X10*3/uL [facility] Blood Venous blood specimen / Unknown 04/10/2024 3:11 PM EST 04/10/2024 4:01 PM EST us Ирина Saenz NP LAB BLOOD ORDERABLES Final Resul t [facility] [address] [place] [address] [phone] documented in this encounter Visit Diagnoses Diagnosis Anemia, unspecified type- Primary Menorrhagia with regular cycle Exposure to sexually transmitted infection Obesity (BMI 30.0-34.9) documented in this encounter Additional Health Concerns Assessment Noted Time PHQ-9 Depression Total Score: 9 04/10/19 25 3:13 PM EST documented as of this encounter Care Teams Vegetable Inspector Relationship Specialty Start Date End Date Ирина Saenz NP [address] [place] [address] PCP - General Family Medicine 04/10/24 documented as of this encounter
[2024-04-10 17:58] LABS: Alkaline Phosphatase 51 U/L (39-117)
[2024-04-11 08:35] LABS: HIV AB/AG Nonreactive (Nonreactive); HIV Num 1 0.06 S/CO (0.00-0.99); ~HepC Num1 0.14 S/CO (0.00-0.79); ~Hepatitis C Antibody Nonreactive (Nonreactive)
[2024-04-12 09:58] LABS: RPR Rapid Plasma Reagin NON-REACTIVE (NON-REACTIVE)
== END 2024-04-10 15:09 | disposition home or self-care (01) ==
LOC: HO.HHCL 15:08
PROVIDERS: Visit Provider Nurse Practitioner Family
DX: D64.9 Anemia, unspecified (principal); E66.811 Obesity, class 1; N92.0 Excessive and frequent menstruation with regular cycle; Z20.2 Contact with and (suspected) exposure to infections with a predominantly sexual mode of transmission
CPT/HCPCS: 36415; 80053; 83036; 83540; 84443; 85025; 86592; 86803; 87389

== ENCOUNTER 2024-05-04 15:12 | Outpatient (REF) | payer MEDICAID, SELFPAY ==
[2024-05-04 16:15] LABS: MANUAL DIFF FLAG NO
[2024-05-04 16:30] LABS: Eosinophils Percent Auto 0.3 % (0-4); Hematocrit 25.4 % (37.0-47.0); Hemoglobin 7.6 g/dl (12.0-16.0); Imm Gran Abs Auto 0.01 X10*3/uL (0.00-0.03); Imm Gran Pct Auto 0.1 % (0.0-0.4); Lymphocytes Percent Auto 28.1 % (20-40); Mean Corpuscular HGB Conc 29.9 g/dl (31.0-35.0); Mean Corpuscular Hemoglobin 19.6 pg (27.0-33.0); Mean Corpuscular Volume 65.5 fL (80.0-98.0); Mean Platelet Volume 9.9 fL (9.4-12.3); Monocytes Absolute Auto 0.7 X10*3/uL (0.1-1.2); Monocytes Percent Auto 9.2 % (2-11); Neutrophils Absolute Auto 4.5 x10*3/uL (2.0-8.3); Neutrophils Percent Auto 62.3 % (45-73); Platelet Count 406 X10*3/uL (160-400); Red Blood Count 3.88 X10*6/uL (4.20-5.50); Red Cell Distribution Width 22.4 % (11.0-16.0); White Blood Count 7.2 X10*3/uL (4.8-10.8)
== END 2024-05-04 15:13 | disposition home or self-care (01) ==
LOC: HO.HHCL 15:12
PROVIDERS: Visit Provider Nurse Practitioner Family
DX: D50.0 Iron deficiency anemia secondary to blood loss (chronic) (principal)
CPT/HCPCS: 36415; 85025

== ENCOUNTER 2024-06-13 11:21 | Outpatient (REF) | payer MEDICAID, SELFPAY ==
--- NOTE | ~2024-06-13 | CT_ITS ---
CLINICAL HISTORY: please see ultrasound, lesions near left ovary CT abdomen and pelvis with contrast Comparison: No prior studies of any type Findings: Lung bases are clear. No acute bony abnormalities. Liver and spleen within normal limits. Pancreas and adrenal glands unremarkable. Gallbladder contracted and not assessed. No significant focal renal abnormalities. Right renal cyst, no stones or hydronephrosis. Abdominal aorta is normal in caliber. No free fluid or adenopathy in the pelvis. No diverticulitis. Appendix unremarkable. 9.3 cm right adnexal dermoid cyst. This contains fat, fluid and calcification. 5.6 cm homogeneous probable left dermoid cyst. Enlarged heterogeneous lobular uterus. There is at least 1 fibroid, measuring 10.4 cm. Impression: Large right adnexal dermoid cyst Probable left adnexal dermoid cyst Uterine fibroids This document has been electronically signed by: Angelo Brooks MD on 06/14/2024 19:25:09
--- OUTSIDE RECORDS SUMMARY | 2024-06-13 13:26 | XMS_ITS | Clinical Summary ---
Author Organization [employer] Address [address] [facility] 7[address] [place] [address] Care Team Providers Care Carpet Winder Name Role Phone DanyИрина MAL Primary Care Provider [phone] Allergies No known active allergies Medications desogestrel-eth inyl estradiol (Apri) 0.15-30 MG-MCG tabletIndicatio ns:Menorrhagia with regular cycle Take 1 tablet by mouth Once per day. 28 tablet 2 04/10/2024 04/10/19 26 Active ferrous sulfate 324 MG EC tablet Take 1 tablet (324 mg) by mouth with breakfast. 30 tablet 2 04/11/2024 07/11/19 25 Active docusate sodium (Colace) 100 MG capsule Take 1 capsule (100 mg) by mouth Once per day. 90 capsule 04/11/2024 07/11/19 25 Active acetaminophen (Tylenol) 500 MG tablet Take 2 tablets (1,000 mg) by mouth every 6 (six) hours if needed for moderate pain or fever for up to 25 doses. 50 tablet 04/12/2024 Active ibuprofen 400 MG tablet Take 1 tablet (400 mg) by mouth every 6 (six) hours if needed for moderate pain or fever for up to 30 doses. 30 tablet 04/12/2024 Active Active Problems Problem Noted Date Diagnosed Date Fibroid 06/12/2024 Pelvic mass 05/24/2024 Menorrhagia with irregular cycle 05/15/2024 Left lower quadrant abdominal mass 05/15/2024 Anemia 04/10/2024 Assessment & Plan (04/10/2024 3:13 [...] Diagnosed Date Resolved Date Other specified anemias 04/10/202403/19 Encounters Date Type Department Care Team Description 06/12/2024 3:15 PM EDT Office Visit [facility] [address] [place] [phone] Ирина Saenz NP Iron deficiency anemia due to chronic blood loss (Primary Dx); Fibroid 06/12/2024 Travel 06/09/2024 Telephone [facility] [address] [place] [phone] Florecita Pal MA Chart Prep 05/24/2024 Orders Only [facility] [address] [place] [phone] Ирина Saenz NP Pelvic mass (Primary Dx) 05/24/2024 Telephone [facility] [address] [place] [phone] Ирина Saenz NP 05/15/2024 Orders Only [facility] [address] [place] [phone] Ирина Saenz NP Menorrhagia with irregular cycle (Primary Dx); Left lower quadrant abdominal mass 04/28/2024 Population Health Risk Score [facility] Department [address] [place] [address] [phone] Provider, Population Health Generic 04/12/2024 11:20 AM EST Office Visit [facility] [address] [place] [phone] Iker Rico MD Influenza-like symptoms (Primary Dx); Lymphadenopathy, postauricular 04/11/2024 Telephone [facility] [address] [place] [phone] Ирина Saenz NP 04/11/2024 Orders Only [address] [address] Ирина Saenz NP Iron deficiency anemia due to chronic blood loss (Primary Dx) 04/10/2024 2:00 PM EST Office Visit [address] [address] Ирина Saenz NP Anemia, unspecified type (Primary Dx); Menorrhagia with regular cycle; Exposure to sexually transmitted infection; Obesity (BMI 30.0-34.9) 04/10/2024 Travel 04/04/[address] [address] Florecita Pal MA Chart Prep 03/30/2024 Patient Outreach [facility] [address] [place], [place] [phone] Ирина Saenz NP Pre-visit Planning (SDOH unable to reach, number disconnected) from Last 3 Months Social History Tobacco Use Types Packs/Day Years Used Date Smoking Tobacco: Never Passive Smoke Exposure: Never Smokeless Tobacco: Never Tobacco Cessation:Counseling Given: Not Answered Depression Answer Date Recorded Patient Health Questionnaire-9 Score 9 04/10/2024 Patient Health Questionnaire-9 Score 9 04/10/2024 Last PHQ-9: Questionnaire Data Not on file 0 04/10/2024 Housing Stability Answer Date Recorded What is your housing situation today? I have alix dayron 04/10/[address] you li [...] Sign Reading Time Taken Comments Blood Pressure 113/76 06/12/2024 3:42 PM EDT Pulse 74 06/12/2024 3:42 PM EDT Temperature 36.3 ??C (97.3 ??F) 06/12/2024 3:42 PM ED T Respiratory Rate 20 06/12/2024 3:42 PM EDT Oxygen Saturation 99% 06/12/2024 3:42 PM EDT Inhaled Oxygen Concentration - - Weight 84.9 kg (187 lb 2 oz) 06/12/2024 3:42 PM EDT Height 160 cm (5' 3 ) 06/12/2024 3:42 PM EDT Body Mass Index 33.15 06/12/2024 3:42 PM EDT Plan of Treatment Health Maintenance Due Date Last Done Comments Family Planning (PISQ) 1996 Hepatitis B Vaccines (1 of 3 - 19+ 3-dose series) 2000 Pap Smear 2002 Cervical Cancer Screening 09/24/2011 HPV/Cotest 09/24/2011 Mammogram 2021 DTaP/Tdap/Td Vaccines (2 - T d or Tdap) 11/03/2021 11/04/2011 COVID-19 Vaccine (3 - 2023-2 5 season) 2023 12/11/2020, 11/20/2020 Influenza Vaccine (#1) 2023 03/25/2011 Alcohol/Substance Use Screening 04/10/2025 04/10/2024 Depression Screening 04/10/2025 04/10/2024, 04/10/2024 SDOH Screening 04/10/2025 04/10/2024 Tobacco Screening 06/12/2025 06/12/2024 Zoster Vaccines (1 of 2) 09/24/2031 RSV Patients and Patients Aged 60 years or older (1 - 1-dose 75+ series) 2056 HIV Screening Completed 04/10/2024 Hepatitis C Screening Completed 04/10/2024 HIB Vaccines Aged Out No longer eligi [...] Procedure Name Priority Date/Time Associated Diagnosis Comments US PELVIS COMPLETE Routine 05/11/2024 Anemia, unspecified type CBC WITH AUTO DIFFERENTIAL Routine 05/04/2024 3:14 PM EDT Iron deficiency anemia due to chronic blood loss POCT INFLUENZA B (ID NOW RAPID MOLECULAR) Routine 04/12/2024 1:34 PM EST Influenza-like symptoms POCT INFLUENZA A (ID NOW RAPID MOLECULAR) Routine 04/12/2024 1:34 PM EST Influenza-like symptoms POCT RAPID STREP A Routine 04/12/2024 1: 34 PM EST Influenza-like symptoms POCT RAPID COVID ANTIGEN Routine 04/12/2024 1:34 PM EST Influenza-like symptoms HEMOGLOBIN A1C Routine 04/10/2024 3:11 PM EST Obesity (BMI 30.0-34.9) COMPREHENSIVE METABOLIC PANEL Routine 04/10/2024 3:11 PM EST Obesity (BMI 30.0-34.9) HEPATITIS C AB W/REFL TO HCV RNA, QN, PCR Routine 04/10/2024 3:11 PM EST Exposure to sexually transmitted infection RPR (MONITOR) W/REFL TITER Routine 04/10/2024 3:11 PM EST Exposure to sexually transmitted infection HIV 1/2 ANTIGEN/ANTIBODY, FOURTH GENERATION W/RFL Routine 04/10/2024 3:11 PM EST Exposure to sexually transmitted infection TSH W/REFLEX TO FT4 Routine 04/10/2024 3 :11 PM EST Menorrhagia with regular cycle IRON AND TOTAL IRON BINDING CAPACITY Routine 04/10/2024 3:11 PM EST Anemia, unspecified type CBC WITH AUTO DIFFERENTIAL Routine 04/10/2024 3:11 PM EST Anemia, unspecified type CHLAMYDIA/N. GONORRHOEAE RNA, TMA, UROGENITAL Routine 04/10/2024 2:40 PM EST Exposure to sexually transmitted infection from Last 3 Months Results * Us Pelvis complete (05/11/2024) Anatomical Region Laterality Modality Pelvis Ultrasound us Ирина Saenz NP IMG US PROCEDURES Final Result * (ABNORMAL) CBC auto differential (05/04/2024 3:14 PM EDT) Only the most recent of2 resultswithin the time period is included. White Blood Count 7.2 4.8 - 10.8 X10*3/uL [facility] Red Blood Count 3.88(L) 4.20 - 5.50 X10*6/uL [facility] Hemoglobin 7.6(L) 12.0 - 16.0 g/dl [facility] Hematocrit 25.4(L) 37.0 - 47.0 % [facility] Mean Corpuscular Volume 65.5(L) 80.0 - 98.0 fL [facility] Mean Corpuscular Hemoglobin 19.6(L) 27.0 - 33.0 pg [facility] Mean Corpuscular HGB Conc 29.9(L) 31.0 - 35.0 g/dl [facility] Red Cell Distribution Width 22.4(H) 11.0 - 16.0 % [facility] Platelet Count 406(H) 160 - 400 X10*3/uL [facility] Mean Platelet Volume 9.9 9.4 - 12.3 fL [facility] Neutrophils Percent Auto 62.3 45 - 73 % [facility] Imm Gran Pct Auto 0.1 0.0 - 0.4 % [facility] Lymphocytes Percent Auto 28.1 20 - 40 % [facility] Monocytes Percent Auto 9.2 2 - 11 % [facility] Eosinophils Percent Auto 0.3 0 - 4 % [facility] Basophils Percent Auto 0.0 0 - 2 % [facility] NRBC Pct Auto 0.0 0.0 - 0.2 /100WBC [facility] Neutrophils Absolute Auto 4.5 2.0 - 8.3 x10*3/uL [facility] Imm Gran Abs Auto 0.01 0.00 - 0.03 X10*3/uL [facility] Lymphocytes Absolute Auto 2.0 1.2 - 4.9 X10*3/uL [facility] Monocytes Absolute Auto 0.7 0.1 - 1.2 X10*3/uL [facility] Eosinophils Absolute Auto 0.0 0.0 - 0.4 X10*3/uL [facility] Basophils Absolute Auto 0.0 0.0 - 0.2 X10*3/uL [facility] NRBC Abs Auto 0.000 0.0 - 0.012 X10*3/uL [facility] Blood Venous blood specimen / Unknown 05/04/2024 3:14 PM EDT 05/04/2024 4:12 PM EDT Ирина Saenz CONTRACT MODELER LAB BLOOD ORDERABLES Final Resul t Performing Organization Address [facility] de Phone Number [facility] [address] [place] [phone] * Influenza B (ID NOW Rapid Molecular) (04/12/2024 1:34 PM EST) Influenza B Negative Negative, Indeterminate [facility] Swab 04/12/2024 1:34 PM EST Iker Rico MD POINT OF CARE TEST ENTER/EDIT OR DERABLES Final Result Performing Organization Address [facility] Phone Number [facility] [address] [place] [phone] * Influenza A (ID NOW Rapid Molecular) (04/12/2024 1:34 PM EST) Pathologist [facility] Influenza A Negative Negative, Indeterminate [facility] Swab 04/12/2024 1:34 PM EST Iker Rico MD POINT OF CARE TEST ENTER/EDIT OR DERABLES Final Result Performing Organization Address [facility] de Phone Number [facility] [address] [place] [phone] * POCT Rapid COVID Ag (04/12/2024 1:34 PM EST) Rapid COVID Ag Negative [facility] Swab 04/12/2024 1:34 PM EST Iker Rico MD POINT OF CARE TEST ENTER/EDIT OR DERABLES Final Result Performing Organization Address [facility]/State/ZIP Co de Phone Number [facility] [address] [place] [phone] * POCT rapid strep A manually resulted (04/12/2024 1:34 PM EST) [facility] Rapid Strep A Screen Negative Negative, None Detected [facility] Swab 04/12/2024 1:34 PM EST us Iker Rico MD POINT OF CARE TEST ENTER/EDIT OR DERABLES Final Result Performing Organization Address [facility] de Phone Number [facility] [address] [place] [phone] * TSH W/Reflex to FT4 (04/10/2024 3:11 PM EST) [facility] TSH reflex Free T4 2.45 0.32 - 4.0 uIU/mL [facility] Blood Venous blood specimen / Unknown 04/10/2024 3:11 PM EST 04/10/2024 4:01 PM EST Ирина Saenz NP LAB BLOOD ORDERABLES Final Resul t Performing Organization Address [facility] Phone Number [facility] [address] [place] [phone] * Hepatitis C Antibody with Reflex to HCV, RNA, Quantitative, Real-Time PCR (04/10/2024 3:11 PM EST) [facility] Hepatitis C Antibody Nonreactive Nonreactive [facility] Comment:Antibodies to HCV no t detected; does not exclude early acuteHCV infection. Blood Venous blood specimen / Unknown 04/10/2024 3:11 PM EST 04/10/2024 4:01 PM EST Ирина Saenz NP LAB BLOOD ORDERABLES Final Resul t Performing Organization Address [facility] de Phone Number [facility] [address] [place] [phone] * (ABNORMAL) Iron And Total Iron Binding Capacity (04/10/2024 3:11 PM EST) Pathologist [facility] Iron 14(L) 30 - 160 mcg/dL [facility] Total Iron Binding Capacity 342 228 - 428 mcg/dL [facility] Percent Iron Saturation 4(L) 15 - 50 % [facility] Unsaturated Iron Binding 328 ug/dL [facility] Blood Venous blood specimen / Unknown 04/10/2024 3:11 PM EST 04/10/2024 4:01 PM EST us Ирина Saenz NP LAB BLOOD ORDERABLES Final Resul t Performing Organization Address [facility] Co de Phone Number [facility] [address] [place] [phone] * RPR (Monitor) with Reflex to??Titer (04/10/2024 3:11 PM EST) [facility] RPR (Monitor) w/Refl Titer NON-REACTI VE NON-REACT KAYLA [facility] Comment:THIS TEST WAS PERFOR MED AT:[employer] [address] [phone] MARTINEZ MD Rapid Plasma Reagin Ab Titer TNP [facility] Blood Venous blood specimen / Unknown 04/10/2024 3:11 PM EST 04/10/2024 4:01 PM EST Ирина Saenz NP LAB BLOOD ORDERABLES Final Resul t Performing Organization Address [facility] Co de Phone Number [facility] [address] [place] [phone] * HIV-1/2 Antigen and Antibodies, Fourth Generation, with Reflexes (04/10/2024 3:11 PM EST) [facility] HIV AB/AG Nonreactive Nonreactive [facility] Comment:HIV-1 p24 Ag and/or HIV-1/HIV-2 Ab not detected.A test result that is nonreactive does not exclude thepossibility of exposure to or infection with HIV-1 and/orHIV-2. Nonreactive results in this assay for individualswith prior exposure to HIV-1 and/or HIV-2 may be due toantigen and antibody levels that are below the limit ofdetection of this assay.The [employer] HIV Ag/Ab Combo assay result andsupplemental assay results should be interpreted inconjunction with the patient's clinical presentation,history and other laboratory results. If the results areinconsistent with clinical evidence, additional testing issuggested to confirm the result. Blood Venous blood specimen / Unknown 04/10/2024 3:11 PM EST 04/10/2024 4:01 PM EST us Ирина Saenz NP LAB BLOOD ORDERABLES Final Resul t Performing Organization Address [facility] Co de Phone Number [facility] [address] [place] [phone] * Hemoglobin A1c (04/10/2024 3:11 PM EST) Hemoglobin A1c 5.2 <6.0 % [facility] Comment:Hemoglobin A1C Refer ence Range Adults: 4.8 - 6.0 % Non diabetic: < 6.0 % Goal: < 7.0 %Additional Action Suggested: > 8.0 %Note: Hemoglobin A1c results are invalid for patients with abnormal amounts of HbF. Blood transfusions may impact the HbA1c concentration in the patient sample. Estimated Average Glucose 103 mg/dL [facility] Comment:eAG = Estimated ave rage glucose which is %A1C expressed asaverage glucose, using the formula of the H4G-JvtyulnMdzgabd Glucose study (ADAG), Diabetes Care, Vol.31,#8,Sep. 2007 Blood Venous blood specimen / Unknown 04/10/2024 3:11 PM EST 04/10/2024 4:01 PM EST us Ирина Saenz NP LAB BLOOD ORDERABLES Final Resul t Performing Organization Address [facility] Co de Phone Number [facility] [address] [place] [phone] * (ABNORMAL) Comprehensive Metabolic Panel (04/10/2024 3:11 PM EST) Sodium 140 135 - 145 mmol/L [facility] Potassium 4.3 3.3 - 5.1 mmol/L [facility] Chloride 109(H) 96 - 108 mmol/L [facility] Carbon Dioxide 25 22 - 29 mmol/L [facility] Anion Gap 10(L) 12 - 20 [facility] Urea Nitrogen (BUN) 18(H) 9 - 16 mg/dL [facility] Creatinine, Serum 0.79 0.5 - 1.4 mg/dL [facility] Estimated Glomerular Filt Rate >60 [facility] Comment:Chronic Kidney Disea se: Estimated GFR < 60 mL/min/1.19f2Rrxkfl Kidney Disease: Estimated GFR < 15 mL/min/1.73m2 Glucose 85 60 - 115 mg/dL [facility] Calcium 8.7 8.4 - 10.2 mg/dL [facility] Bilirubin, Total 0.2 0.0 - 1.0 mg/dL [facility] Aspartate Amino Transferase 25 5 - 31 U/L [facility] Alanine Aminotransferase 20 0 - 31 U/L [facility] Total Protein 7.6 6.5 - 8.0 g/dL [facility] Albumin Level 3.6 3.5 - 5.0 g/dL [facility] Alkaline Phosphatase 51 39 - 117 U/L [facility] Blood Venous blood specimen / Unknown 04/10/2024 3:11 PM EST 04/10/2024 4:01 PM EST us Ирина Saenz NP LAB BLOOD ORDERABLES Final Resul t [facility] [address] [place] [phone] * Chlamydia/N. Gonorrhoeae RNA, TMA, Urogenitial (04/10/2024 2:40 PM EST) CT PCR NOT DETECTED Not Detect. [facility] Comment:A not detected test result does not exclude the possibilityof infection because test results can be affected byimproper specimen collection, concurrent antibiotic therapy,or the number of organisms in the specimen which may bebelow the sensitivity of the test. As with many diagnostictests, results from the Xpert CT/NG assay should beinterpreted in conjunction with other laboratory andclinical data available to the clinician.Xpert CT/NG performance has not been evaluated in patientsless than 14 years of age. The assay should not be used forthe evaluationof suspected sexual abuse or for other medico-legalindications. Additional testing is recommended in anycircumstance when false positive or false negative resultscould lead to adverse medical, social or psychologicalconsequences. NG PCR NOT DETECTED Not Detect. [facility] Comment:A not detected test result does not exclude the possibilityof infection because test results can be affected byimproper specimen collection, concurrent antibiotic therapy,or the number of organisms in the specimen which may bebelow the sensitivity of the test. As with many diagnostictests, results from the Xpert CT/NG assay should beinterpreted in conjunction with other laboratory andclinical data available to the clinician.Xpert CT/NG performance has not been evaluated in patientsless than 14 years of age. The assay should not be used forthe evaluationof suspected sexual abuse or for other medico-legalindications. Additional testing is recommended in anycircumstance when false positive or false negative resultscould lead to adverse medical, social or psychologicalconsequences. Urine (Urine, Random) 04/10/2024 2:40 PM EST 04/10/2024 4:42 PM EST Narrative [facility] - 04/11/2024 2:28 PM EST Urine us Ирина Saenz NP LAB MICROBIOLOGY - GENERAL ORDER LATONIA Final Result [facility] [address] [place] [phone] from Last 3 Months Insurance [facility] ST[employer] [facility] C3 Care Teams Carpet Winder Relationship Specialty Start Date End Date Ирина Saenz NP [address] [place] [address] PCP - General Family Medicine 04/10/24
--- OUTSIDE RECORDS SUMMARY | 2024-06-13 13:26 | XMS_ITS | Encounter Summary ---
Author Organization [employer] Address [address] [facility] 7[address] [place] [address] Care Team Providers Care Stablehand Name Role Phone Ирина Saenz NP Primary Care Provider [phone] Encounter Details Date Type Department Care Team (Late st Contact Info) Description 06/12/2024 3:15 PM EDT Office Visit [facility] [address] [place], [place] [phone] Ирина Saenz NP [address] [place] [address] Iron deficiency anemia due to chronic blood loss (Primary Dx); Fibroid Social History Tobacco Use Types Packs/Day Years [...] Mass Index 33.15 06/12/2024 3:42 PM EDT documented in this encounter Plan of Treatment Scheduled Orders Name Type Priority Associated Diagnoses Orde r Schedule CBC auto differential Lab Routine Iron deficiency anemia due to chronic blood loss Expected: 06/12/2024 (Approximate), Expires: 06/12/2025 documented as of this encounter Visit Diagnoses Diagnosis Iron deficiency anemia due to chronic blood loss- Primary Iron deficiency anemia secondary to blood loss (chronic) Fibroid Leiomyoma of uterus, unspecified documented in this encounter Additional Health Concerns Assessment Noted Time PHQ-9 Depression Total Score: 9 04/10/19 25 3:13 PM EST documented as of this encounter Care Teams Stablehand Relationship Specialty Start Date End Date Ирина Saenz NP [address] [place] [phone] PCP - General Family Medicine 04/10/24 documented as of this encounter
--- OUTSIDE RECORDS SUMMARY | 2024-06-13 13:26 | XMS_ITS | Encounter Summary ---
Author Organization [email or web address] Address [address] [facility] 7t [place] [address] Care Team Providers Care Fixture Repairer Fabricator Name Role Phone Ирина Saenz NP Primary Care Provider [phone] Reason for Visit * Reason Onset Date Comments Chart Prep 06/09/2024 Encounter Details Date Type Department Care Team (Late st Contact Info) Description 06/09/2024 Telephone [facility] MED[facility] [address] [place], [place] [phone] Florecita Pal [place] Chart Prep Social History [...] Telephone Encounter - Florecita Pal [place] - 06/09/2024 3:58 PM EDT Chart Prep Labs: done Images: not done Referrals: Radiology pending appointment Vaccines due: Covid, Tdap, Hep B, Flu Screenings: mammogram and Cervical cancer Overdue care gaps: Disability screen and Tobacco documented in this encounter Plan of Treatment Not on file documented as of this encounter Visit Diagnoses Not on filedocumented in this encounter Additional Health Concerns Assessment Noted Time PHQ-9 Depression Total Score: 9 04/10/19 3:13 PM EST documented as of this encounter Care Teams Fixture Repairer Fabricator Relationship Specialty Start Date End Date Ирина Saenz NP [address] [place] [phone] PCP - General Family Medicine 04/10/24 documented as of this encounter
--- OUTSIDE RECORDS SUMMARY | 2024-06-13 13:26 | XMS_ITS | Encounter Summary ---
Author Organization [employer] Address [address] [facility] 7t [place] [address] Care Team Providers Care Felt Finisher Name Role Phone Ирина Saenz [place] Primary Care Provider [phone] Encounter Details Date Type Department Care Team (Latest Contact Info) Description 06/12/2024 Travel Social History Tobacco Use Types Packs/Day Years Used Date Smoking Tobacco: Never Passive Smoke Exposure: Never Smokeless Tobacco: Never Depression Answer Date [...] as of this encounter Plan of Treatment Not on file documented as of this encounter Visit Diagnoses Not on filedocumented in this encounter Additional Health Concerns Assessment Noted Time PHQ-9 Depression Total Score: 9 04/10/19 3:13 PM EST documented as of this encounter Care Teams Felt Finisher Relationship Specialty Start Date End Date Ирина Saenz NP [address] [place] [phone] PCP - General Family Medicine 04/10/24 documented as of this encounter
[2024-06-13] MEDS: iohexoL 350 MG/ML 100 ML INFUS..BTL IV (14:44)
[2024-06-13] MEDS: Barium Sulfate Oral (Mocha) 450 ML ORAL.SUSP PO ×2 (14:45)
== END 2024-06-13 11:22 | disposition home or self-care (01) ==
LOC: HO.CT 11:21
PROVIDERS: PCP Nurse Practitioner Family; Visit Provider Nurse Practitioner Family
DX: R19.00 Intra-abdominal and pelvic swelling, mass and lump, unspecified site (principal); R19.4 Change in bowel habit
CPT/HCPCS: 74177; Q9967

== ENCOUNTER → 2024-06-13 11:24 | Outpatient (BNV) | payer MEDICAID, SELFPAY | PROVIDERS: PCP Nurse Practitioner Family; Visit Provider Radiology Diagnostic Radiology | DX: N83.291 Other ovarian cyst, right side (principal); N83.292 Other ovarian cyst, left side; D25.9 Leiomyoma of uterus, unspecified | CPT/HCPCS: 74177 ==